=== PATIENT | female | born 1975 | race Asian ===

== ENCOUNTER 2016-11-22 12:13 | Outpatient (CLI) | payer OTHER ==
[2016-11-22] MEDS ORDERED: SODIUM CHLORIDE FLUSH 0.9% 10 ML SYRINGE IVP PRN (12:53)
[2016-11-22] MEDS ORDERED: fentaNYL 100 MCG/2 ML VIAL IVP PRN (12:54)
[2016-11-22] MEDS ORDERED: ONDANSETRON 4 MG/2 ML VIAL IVP PRN (12:54)
[2016-11-22] MEDS ORDERED: TERBUTALINE 1 MG/ML VIAL SUBQ PRN (12:55)
== END 2016-11-22 14:35 | disposition home or self-care (01) ==
DX: O32.2XX0 Maternal care for transverse and oblique lie, not applicable or unspecified (principal); O09.523 Supervision of elderly multigravida, third trimester; O24.419 Gestational diabetes mellitus in pregnancy, unspecified control; Z3A.38 38 weeks gestation of pregnancy

== ENCOUNTER 2016-11-30 15:47 | Observation (INO) | payer OTHER ==
[2016-11-30] MEDS ORDERED: SODIUM CHLORIDE FLUSH 0.9% 10 ML SYRINGE IVP PRN (16:53)
[2016-11-30] MEDS ORDERED: fentaNYL 100 MCG/2 ML VIAL IVP PRN ×3 (16:53→20:39)
[2016-11-30] MEDS ORDERED: TERBUTALINE 1 MG/ML VIAL SUBQ ONE ×3 (17:26→18:00)
[2016-11-30] MEDS ORDERED: ONDANSETRON 4 MG/2 ML VIAL ONE (17:32)
[2016-11-30] MEDS ORDERED: fentaNYL 100 MCG/2 ML VIAL ONE (17:32)
[2016-11-30] MEDS ORDERED: ONDANSETRON 4 MG/2 ML VIAL IVP ONE (18:00)
[2016-11-30] MEDS ORDERED: DINOPROSTONE 10 MG SUPP VG ONE (18:30)
[2016-11-30] MEDS: SODIUM CHLORIDE FLUSH 0.9% 10 ML SYRINGE IVP SCH (23:15)
[2016-12-01] MEDS: LACTATED RINGERS 1,000 ML IV SCH ×2 (05:05→21:22)
[2016-12-01] MEDS ORDERED: miSOPROStol 100 MCG TABLET VG SCH (07:30)
[2016-12-01] MEDS: miSOPROStol 100 MCG TABLET PO SCH ×2 (09:58→15:10)
[2016-12-01] MEDS ORDERED: ZOLPIDEM 5 MG TABLET PO SCH (20:00)
[2016-12-01] MEDS: SODIUM CHLORIDE FLUSH 0.9% 10 ML SYRINGE IVP SCH (20:10)
[2016-12-01] MEDS ORDERED: MORPHINE 10 MG/ML VIAL IM SCH (23:45)
[2016-12-01] MEDS ORDERED: ONDANSETRON 4 MG/2 ML VIAL IVP PRN (23:45)
[2016-12-02] MEDS: SODIUM CHLORIDE FLUSH 0.9% 10 ML SYRINGE IVP SCH (06:11)
== END 2016-12-02 11:25 | disposition home or self-care (01) ==
DX: O24.410 Gestational diabetes mellitus in pregnancy, diet controlled (principal); O76 Abnormality in fetal heart rate and rhythm complicating labor and delivery; O61.0 Failed medical induction of labor; Z3A.39 39 weeks gestation of pregnancy
CPT/HCPCS: 36415; 59025; 76819; 85025; 86850; 86900; 86901; 96372; 96374; A9270; G0378; J7120

== ENCOUNTER 2016-12-05 17:00 | Inpatient (IN) | payer OTHER ==
[2016-12-05] MEDS ORDERED: fentaNYL 100 MCG/2 ML VIAL IVP PRN (17:20)
[2016-12-05] MEDS ORDERED: SODIUM CHLORIDE FLUSH 0.9% 10 ML SYRINGE IVP PRN (17:20)
[2016-12-05] MEDS ORDERED: ZOLPIDEM 5 MG TABLET PO PRN (17:24)
[2016-12-05] MEDS ORDERED: MORPHINE 10 MG/ML VIAL IM ONE (17:51)
[2016-12-05] MEDS ORDERED: DINOPROSTONE 10 MG SUPP VG ONE (18:00)
[2016-12-06] MEDS: SODIUM CHLORIDE FLUSH 0.9% 10 ML SYRINGE IVP SCH ×3 (00:16→11:13)
[2016-12-06] MEDS ORDERED: ceFAZolin 2 GM in SODIUM CHLORIDE 0.9% MINIBAG 100 ML IV ONE (09:00)
[2016-12-06] MEDS ORDERED: CITRIC ACID/SODIUM CITRATE 15 ML UDC PO ONE ×2 (09:30→11:31)
[2016-12-06] MEDS: LACTATED RINGERS 1,000 ML IV SCH ×6 (11:16→23:06)
[2016-12-06] MEDS ORDERED: LACTATED RINGERS 1,000 ML IV ONE (12:07)
[2016-12-06] MEDS ORDERED: OXYTOCIN 10 UNIT/ML VIAL IV ONE (12:30)
[2016-12-06] MEDS ORDERED: ceFAZolin 1 GM VIAL IV ONE (12:30)
[2016-12-06] MEDS ORDERED: ONDANSETRON 4 MG/2 ML VIAL IVP ONE (12:30)
[2016-12-06] MEDS ORDERED: ACETAMINOPHEN 1,000 MG/100 ML VIAL IV ONE (12:30)
[2016-12-06] MEDS ORDERED: KETOROLAC 30 MG/ML VIAL IVP ONE (12:30)
[2016-12-06] MEDS ORDERED: MORPHINE PF 5 MG/10 ML AMP EP ONE (12:30)
[2016-12-06] MEDS: OXYTOCIN/LACTATED RINGERS 250 ML IV SCH ×2 (13:10→18:54)
[2016-12-06] MEDS ORDERED: OXYTOCIN/LACTATED RINGERS 250 ML IV ONE (13:16)
[2016-12-06] MEDS ORDERED: LACTATED RINGERS 250 ML IV ONE (13:20)
[2016-12-06] MEDS ORDERED: MAGNESIUM HYDROXIDE 2,400 MG/30 ML UDC PO PRN (13:29)
[2016-12-06] MEDS: ACETAMINOPHEN 500 MG TABLET PO SCH ×2 (14:12→22:31)
[2016-12-06] MEDS ORDERED: ONDANSETRON 4 MG/2 ML VIAL ONE (16:47)
[2016-12-06] MEDS: oxyCODONE 5 MG TABLET PO PRN ×2 (16:56→21:34)
[2016-12-06] MEDS ORDERED: MORPHINE 2 MG/ML SYRINGE IVP PRN (18:00)
[2016-12-06] MEDS ORDERED: NALBUPHINE 20 MG/ML AMP IVP PRN (18:00)
[2016-12-06] MEDS ORDERED: NALOXONE 0.4 MG/ML VIAL IVP PRN (18:00)
[2016-12-06] MEDS ORDERED: METOCLOPRAMIDE 10 MG/2 ML VIAL IVP PRN (18:00)
[2016-12-06] MEDS ORDERED: diphenhydrAMINE INJ 50 MG/ML VIAL IVP PRN (18:00)
[2016-12-06] MEDS ORDERED: ONDANSETRON 4 MG/2 ML VIAL IVP PRN (18:00)
[2016-12-06] MEDS ORDERED: diphenhydrAMINE 25 MG CAPSULE PO PRN (18:00)
[2016-12-06] MEDS: CELECOXIB 100 MG CAPSULE PO SCH (21:33)
[2016-12-06] MEDS: DOCUSATE SODIUM 100 MG CAPSULE PO SCH (22:31)
[2016-12-07] MEDS: oxyCODONE 5 MG TABLET PO PRN ×4 (02:02→18:33)
[2016-12-07] MEDS: LACTATED RINGERS 1,000 ML IV SCH (03:59)
[2016-12-07] MEDS: ACETAMINOPHEN 500 MG TABLET PO SCH ×3 (05:55→22:09)
[2016-12-07] MEDS: SODIUM CHLORIDE FLUSH 0.9% 10 ML SYRINGE IVP SCH ×4 (08:30→20:55)
[2016-12-07] MEDS: CELECOXIB 100 MG CAPSULE PO SCH ×2 (08:54→20:51)
[2016-12-07] MEDS: SIMETHICONE CHEW 80 MG TABLET PO PRN ×3 (08:54→20:51)
[2016-12-07] MEDS: DOCUSATE SODIUM 100 MG CAPSULE PO SCH ×2 (08:54→20:51)
[2016-12-08] MEDS: oxyCODONE 5 MG TABLET PO PRN ×3 (00:33→08:30)
[2016-12-08] MEDS: SODIUM CHLORIDE FLUSH 0.9% 10 ML SYRINGE IVP SCH (05:19)
[2016-12-08] MEDS: ACETAMINOPHEN 500 MG TABLET PO SCH (05:21)
[2016-12-08] MEDS: CELECOXIB 100 MG CAPSULE PO SCH (09:01)
[2016-12-08] MEDS: DOCUSATE SODIUM 100 MG CAPSULE PO SCH (09:01)
== END 2016-12-08 12:15 | disposition home or self-care (01) | DRG 766 ==
PROC: 3E097GC Introduction of Other Therapeutic Substance into Nose, Via Natural or Artificial Opening (ICD-10-PCS; 2016-12-05)
PROC: 10D00Z1 Extraction of Products of Conception, Low, Open Approach (ICD-10-PCS; principal; 2016-12-06 12:00)
DX: O61.0 Failed medical induction of labor (principal); O32.0XX0 Maternal care for unstable lie, not applicable or unspecified; O69.81X0 Labor and delivery complicated by cord around neck, without compression, not applicable or unspecified; O77.0 Labor and delivery complicated by meconium in amniotic fluid; O76 Abnormality in fetal heart rate and rhythm complicating labor and delivery; O24.420 Gestational diabetes mellitus in childbirth, diet controlled; Z37.0 Single live birth; Z3A.39 39 weeks gestation of pregnancy